=== PATIENT | female | born 1990 | race Two or more races ===

== ENCOUNTER 2018-03-29 13:35 | Emergency (ER) | payer OTHER ==
[~2018-03-29] VITALS: Ht 149.9 cm; Wt 82.1 kg
[2018-03-29 14:01] VITALS: BP 119/70; Ht 149.9 cm; Wt 82.1 kg
== END 2018-03-29 16:40 | disposition home or self-care (01) ==
LOC: ED 13:35
DX: J32.9 Chronic sinusitis, unspecified (principal); J45.909 Unspecified asthma, uncomplicated